=== PATIENT | male | born 1975 | race Caucasian/White ===

== ENCOUNTER 2024-02-12 13:52 | Emergency (ER) | payer OTHER, SELFPAY ==
[2024-02-12 13:59] VITALS: BP 154/106
[2024-02-12 14:19] LABS: % Basophils 0.3 % (0-2); % Immature Granulocytes 0.3 % (0-0.5); % Lymphocytes 10.1 % (20.5-51.1); % Monocytes 5.4 % (1.7-9.3); % Neutrophils 81.9 % (42.2-75.2); Absolute Eosinophils 0.3 10^3/uL (0-0.7); Absolute Lymphocytes 1.3 10^3/uL (1.2-3.4); Absolute Monocytes 0.7 10^3/uL (0.1-0.6); Absolute Neutrophils 10.8 10^3/uL (1.4-6.5); Hematocrit 43.6 % (39.0-52.0); Hemoglobin 15.8 g/dL (13.0-18.0); Mean Corp Hgb Conc. 36.2 g/dL (33.0-37.0); Mean Corpuscular Hgb 32.5 pg (27.0-31.0); Mean Corpuscular Volume 89.7 fL (80.0-94.0); Mean Platelet Volume 9.7 fL (7.4-10.4); Nucleated Red Blood Cells % 0 % (-); Platelet Count 214 10^3/uL (130-400); Red Blood Cell Count 4.86 10^6/uL (4.70-6.10); Red Cell Dist. Width 11.9 % (11.5-14.5); White Blood Cell Count 13.2 10^3/uL (4.8-10.8)
[2024-02-12 14:42] LABS: ALT (SGPT) 23 U/L (0-50); AST (SGOT) 33 U/L (17-59); Albumin 4.8 g/dl (3.5-5.0); Alkaline Phosphatase 101 U/L (38-126); Blood Urea Nitrogen 10 mg/dl (9-20); Calcium 9.7 mg/dl (8.4-10.2); Glucose 108 mg/dl (70-99); Lipase 79 U/L (23-300); Total Bilirubin 0.7 mg/dl (0.2-1.3); Total Protein 7.2 g/dl (6.3-8.2); eGFR > 60.00
[2024-02-12 14:44] LABS: Carbon Dioxide 28 mmol/L (22-30); Chloride 101 mmol/L (98-107); Potassium 4.1 mmol/L (3.5-5.1); Sodium 137 mmol/L (135-145)
[2024-02-12 14:57] LABS: Troponin I < 0.012 ng/ml
[2024-02-12] MEDS: OMNIPAQUE 50 ML PO (16:41)
[2024-02-12] MEDS: ZOFRAN 4 MG IV (16:41)
[2024-02-12] MEDS: NSS 1000 IV (16:45)
[2024-02-12 16:49] VITALS: BMI 23.8
[2024-02-12 19:00] VITALS: BP 132/86
[2024-02-12] MEDS: MAALOX 30 ML PO (19:49)
[2024-02-12 20:35] VITALS: BP 128/94
--- NOTE | 2024-02-12 20:58 | ED.GENMED ---
History of Present Illness
General
Chief Complaint: Abdominal Pain
Source: patient
Exam Limitations: none
Time Seen by Provider: 02/12/24 16:19
Nursing documentation reviewed up to this point in time: agreed with
History of Present Illness
History of Present Illness:
Patient to ED with complaint of periumbilical abdominal pain, n/v/d. Symptoms started this AM. Denies fever/chills. No prior history of same. Also reports 'abscess' to right groin. Noticed this past month. Brought self to ED for eval.
Past History
Past History
ED Past Medical History: GERD and Seizures (epilepsy)
ED Past Surgical History: Orthopedic (Back surgery)
Social History
Tobacco: Former smoker (Quit smoking 13 years ago.)
Alcohol: None
Personal:
Living: with family
Employment: Employed (Grocery store)
Family History
Family History: Cancer (Father with history of colon cancer late in life)
Review of Systems
Review of Systems
Allergies reviewed?: Yes
All Other Systems: ROS reviewed and negative except as documented in HPI and ROS
Constitutional: Reports no symptoms
EENT: Reports no symptoms
Respiratory: Reports no symptoms
Cardiac: Reports no symptoms
ABD/GI: Reports abdominal pain (periumbilical), nausea, vomiting and diarrhea
: Reports no symptoms
Musculoskeletal: Reports no symptoms
Skin: Reports no symptoms
Neurological: Reports no symptoms
Psychiatric: Reports no symptoms
Phy Exam
General Physical Exam
General Presentation: well appearing and no apparent distress
General age: appears stated age
General Skin: warm and dry
General Habitus: normal
Cardiovascular Exam
Cardiovascular Exam: regular rate/rhythm
Pulmonary Exam
Pulmonary Exam: no respiratory distress
Gastrointestinal Exam
Gastrointestinal Exam: normal bowel sounds, soft, no organomegaly, non distended, no cva tenderness and other (right small inguinal hernia, reduceable. No skin changes.)
Musculoskeletal Exam
Musculoskeletal Exam: full ROM and neuro vasc intact
Skin Exam
Skin Exam: normal color, warm/dry, no rash and other (No skin abscess)
Psychiatric Exam
Psychiatric Exam: normal mood/affect
Course
Orders/Labs/Results
Orders:
Orders
02/12/24 14:04
Electrocardiogram (*1) Urgent
Reason for Study: Abdominal Pain
EKG- Treatment ONCE
02/12/24 14:09
CMP [Comprehensive Metabolic Panel] Urgent
Complete Blood Count/With Diff Urgent
Lipase Urgent
Troponin I Urgent
02/12/24 16:33
0.9% Sodium Chloride 1000 ml [Nss] 1,000 ml IV BOLUS
Iohexol [Omnipaque] See Protocol PO NOW STA
Ondansetron Injectable [Zofran] 4 mg IV NOW STA
02/12/24 16:34
CT Abd/pel W Iv And Oral Contr Urgent
Comment:
Reason For Exam: abdominal pain, vomiting
02/12/24 19:45
Mag Hydrox/Al Hydrox/Simeth [Maalox] 30 ml PO NOW STA
Abnormal Lab Results
02/12/24
14:09
WBC 13.2 H 10^3/uL
(4.8-10.8)
MCH 32.5 H pg
(27.0-31.0)
Absolute Neuts (auto) 10.8 H 10^3/uL
(1.4-6.5)
Absolute Monos (auto) 0.7 H 10^3/uL
(0.1-0.6)
Neutrophils % 81.9 H %
(42.2-75.2)
Lymphocytes % 10.1 L %
(20.5-51.1)
Glucose 108 H mg/dl
(70-99)
02/12/24 14:09
02/12/24 14:09
Vital Signs
Initial and Last Documented VS:
Initial Vital Signs
Temp Pulse Resp BP Pulse Ox
97.8 F 105 16 154/106 96
02/12/24 13:59 02/12/24 13:59 02/12/24 13:59 02/12/24 13:59 02/12/24 13:59
Last Documented Vital Signs
Temp Pulse Resp BP Pulse Ox
97.8 F 96 18 132/86 96
02/12/24 13:59 02/12/24 20:00 02/12/24 20:00 02/12/24 19:00 02/12/24 20:30
Update Note
Update Note:
No further vomiting or diarrhea while in dept. Labs, CT reviewed with patient. Symptoms most likely due to enteritis. Will continue clear liquids, advancing diet as tolerated. Given instructions on s/s to return to ED and he is agreeable to
plan. No abscess to right groin. Small reduceable inguinal hernia noted. WIll follow up outpatient with surgery.
ED Attending Note
-
Portions of this chart may have been created with voice recognition software.� Occasional wrong word or��sound alike� substitutions may have occurred due to the inherent limitations of voice recognition software.
Discharge Plan
Departure
Patient Disposition: Home (Routine Discharge)
Date of Disposition: 02/12/24
Time of Disposition: 21:15
Patient with high blood pressure during this ER visit?: No
Condition: Good
Covid-19: Not Applicable
Discharge Problem:
Enteritis
Instructions: Clear Liquid Diet, Abdominal Pain
Prescriptions:
No Action
oxcarbazepine 300 MG tablet
900 mg PO HS
Patient Comments:
07/19/17: Prescribed 300mg in the morning and 600mg at bedtime but patient stated 'take all 3 tablets at bedtime.'
azithromycin 250 MG tablet
250 mg PO DAILY Qty: 4 0RF
oseltamivir 75 MG capsule
75 mg PO Q12H Qty: 4 0RF
guaifenesin [Mucus Relief ER] 600 MG tablet extended release 12hr
600 mg PO Q12 Qty: 14 0RF
ondansetron 4 MG tablet,disintegrating
4 mg PO TIDPRN PRN (Reason: nausea/vomiting) Qty: 10 0RF
pantoprazole [Protonix] 40 mg tablet,delayed release (DR/EC)
40 mg PO DAILY Qty: 10 0RF
Referrals:
Nany Flores MD [Family Provider] - Follow up in 2-3 days
Stand Alone Forms: Return to Work
Activity Restrictions/Additional Instructions:
Return to the emergency department immediately for any changes in/worsening of your symptoms.
Interventions
Interventions:
*Risk Screen - Suicide Last Done: 02/12/24 16:51
*General Assessment Last Done: 02/12/24 13:59
*Neglect/Abuse Screening Last Done: 02/12/24 16:51
*ED COVID-19 Vaccine History Last Done: 02/12/24 14:03
OC-Rcahjh-Igirvogjde Assessment Last Done: 02/12/24 16:51
Discharge Date and Time
Print Language: SENEGALESE
[2024-02-12 21:00] VITALS: BP 135/94
== END 2024-02-12 21:40 | disposition home or self-care (01) ==
LOC: EMR 13:52
PROVIDERS: Emergency Medicine; EMERGENCY PHYSICIAN Emergency Medicine; FAMILY PHYSICIAN Family Medicine
DX: K52.9 Noninfective gastroenteritis and colitis, unspecified (principal); K40.90 Unilateral inguinal hernia, without obstruction or gangrene, not specified as recurrent; K21.9 Gastro-esophageal reflux disease without esophagitis; R56.9 Unspecified convulsions; Z87.891 Personal history of nicotine dependence; Z88.0 Allergy status to penicillin
CPT/HCPCS: 99285; 96361; 96374; 74177; 80053; 83690; 84484; 85025; 93005; Q9967

== ENCOUNTER 2024-07-22 07:45 | Day surgery (SDC) | payer BC, SELFPAY ==
[2024-07-02 14:10] VITALS: BMI 25.0
[2024-07-22] VITALS (10 sets, daily range): BP systolic 134–146; BP diastolic 78–100; BMI 25.0
[2024-07-22] MEDS: NORMOSOL-R/PLASMALYTE-A 1000 IV (09:32)
[2024-07-22] MEDS: TYLENOL 1000 MG PO (09:32)
--- NOTE | 2024-07-22 11:41 | W.IMMPOSTOP ---
Surgical Immed Post Op Note
-
Primary Surgeon: Penyn
Assisting: Jennifer CAMARGO
Pre-op Diagnosis: Right inguinal hernia
Post-op Diagnosis: Same
Procedure Performed: Robot assisted laparoscopic repair of right inguinal hernia
Anesthesia Type: GETA
Specimen / Cultures: None
Estimated Blood Loss: 5cc
Complications: None immediate
Operative Findings: Indirect defect, large deep sac totally reduced; XL MID 3D Max
--- NOTE | 2024-07-22 11:42 | OR.RPT ---
Operative Report
Operative Report
Primary Surgeon: Penny
Assisting: Jennifer CAMARGO
Pre-op Diagnosis: Right inguinal hernia
Post-op Diagnosis: Same
Procedure Performed: Robot assisted laparoscopic repair of right inguinal hernia
Anesthesia Type: GETA
Specimen / Cultures: None
Estimated Blood Loss: 5cc
Complications: None immediate
Operative Findings: Indirect defect, large deep sac totally reduced; XL MID 3D Max
Date of surgery: 07/22/24
Indications:� This 49M developed a symptomatic right inguinal hernia. Robot assisted laparoscopic repair was planned.
Description of procedure:� The patient was taken to the operating room and positioned into supine position. The patient�s abdomen was prepped and draped in standard sterile fashion. A time-out was completed verifying correct patient, procedure,
site, positioning, and implants and special equipment prior to beginning this procedure.
The right groin hernia was manually reduced. A stab incision was made in the left upper quadrant, a Veress needle was inserted and proper position was confirmed by aspiration and saline drop test. Following this, pneumoperitoneum was created with
insufflation of carbon dioxide to 12 mmHg. Then a 8mm robotic trocar was inserted above and to the left of the umbilicus. A laparoscope was inserted and the area of initial trocar entry and Veress needle placement were both inspected and no injuries
were found. Two 8mm trocars were then placed lateral to the rectus sheath under direct visualization.
Both inguinal regions were inspected and the median umbilical ligament, medial umbilical ligament, and lateral umbilical fold were identified. Attention was turned to the right groin. The peritoneum was incised transversely above the defect and a
flap was developed in the caudad direction. Colten�s ligament was identified ultimately dissected to its junction with the iliac vein and the space of Retzius was developed bluntly.�The dissection was continued inferiorly to the iliopubic tract,
with care taken to avoid injury to the femoral branch of the genitofemoral nerve and the lateral femoral cutaneous nerve. The cord structures were parietalized.
The direct space was inspected and no hernia defect was identified. The femoral space was inspected no defect was identified.� The indirect space was inspected and a hernia was identified and reduced by gentle traction. The canal was inspected and
no cord lipoma was identified.
Extra large right MID 3D max mesh was passed through a trocar. The mesh was placed into the preperitoneal space and moved into position to lay flat and completely cover the direct, indirect, and femoral spaces with overlap beyond the midline. The
mesh was secured into place using 2-0 vicryl suture to Colten�s ligament medially and laterally. Care was taken to avoid the inferolateral triangles containing the iliac vessels and genital nerves. The peritoneal flap was closed over the mesh and
secured with 2-0 monocryl stratafix suture in similar positions of safety. A 14g angiocath was used to decompress the preperitoneal space revealing good seal and all mesh in good position without folding or curling.
After ensuring adequate hemostasis, the trocars were removed and the pneumoperitoneum allowed to escape. The trocar incisions were closed at the skin level using 4-0 monocryl and topical skin adhesive. All counts were correct and the patient
tolerated the procedure well and was taken to the postanesthesia care unit in stable condition.
The assistance of Jennifer CAMARGO was required due to the complexity of the procedure. During the procedure she assisted with retraction, and closure of the wound.
== END 2024-07-22 14:12 | disposition home or self-care (01) ==
LOC: SDS 07:45
PROVIDERS: ATTENDING PHYSICIAN Surgery; FAMILY PHYSICIAN Family Medicine
DX: K40.90 Unilateral inguinal hernia, without obstruction or gangrene, not specified as recurrent (principal)
CPT/HCPCS: 49650; 36415; 93005; C1781

== ENCOUNTER → 2025-03-30 21:30 | Emergency (ER) | payer BC, SELFPAY ==
[2025-03-30 21:33] VITALS: BP 163/120
--- NOTE | 2025-03-30 21:53 | ED.GENMED ---
History of Present Illness
General
Chief Complaint: Chest Pain
Time Seen by Provider: 03/30/25 21:45
History of Present Illness
History of Present Illness:
49-year-old male presents to the emergency department for eval ration of lightheadedness/dizziness associated with nausea and left-sided chest pain for the past 2 to 3 days. Lightheadedness and nausea began initially in conjunction with cold and
flu type symptoms, he states the URI symptoms have since resolved however the chest pain has persisted. Pain is nonpleuritic and nonradiating. Denies any obvious fevers or chills. No shortness of breath, nausea, or vomiting at this time. Has no
history of cardiovascular disease. Former smoker
Past History
Past History
ED Past Medical History: GERD and Seizures (epilepsy)
ED Past Surgical History: Orthopedic (Back surgery)
Social History
Tobacco: Former smoker (Quit smoking 13 years ago.)
Alcohol: None
Personal:
Living: with family
Employment: Employed (Grocery store)
Family History
Family History: Cancer (Father with history of colon cancer late in life)
Review of Systems
Review of Systems
Allergies reviewed?: Yes
All Other Systems: ROS reviewed and negative except as documented in HPI and ROS
Phy Exam
Physical Exam
Physical Exam:
GEN: Well appearing, NAD, WDWN
HEENT: Oral mucosa moist, no scleral icterus, oropharynx clear with no erythema
Cardiac: Regular rate and rhythm, no murmurs
Lung: No respiratory distress, no tachypnea, lungs clear to auscultation bilaterally
MSK: No gross deformity or injuries
Skin: Good color, no pallor or jaundice, no rashes
Neuro: AO x3, moves all extremities freely
Psych: Calm, cooperative
Scores
Heart Score for Chest Pain Patients
STEMI patient?: No
History: Slightly or Non-Suspicious
ECG: Normal
Age: >45 - <65 years
Risk Factors: 1 or 2 Risk Factors
Troponin: </= Normal Limit
Heart Score for Chest Pain Patients: 2
Heart Score Risk: 2.5% MACE over next 6 weeks
Course
Orders/Labs/Results
Orders:
Orders
03/30/25 21:52
Electrocardiogram (*1) Urgent
Reason for Study: Chest Pain
EKG- Treatment ONCE
CR Chest - 2 Views Urgent
Comment:
Reason For Exam: chest pain
03/30/25 22:12
COVID-19 Antigen Urgent
Source: Nasal Swab
Complete Blood Count/With Diff Urgent
Comprehensive Metabolic Panel Urgent
Troponin I Urgent
Influenza A+B Rapid Molecular Urgent
CINTHIA Source: Nasal Swab
Specimen Description:
Abnormal Lab Results
03/30/25
22:12
RBC 4.37 L 10^6/uL
(4.70-6.10)
Hct 38.8 L %
(39.0-52.0)
MCH 31.4 H pg
(27.0-31.0)
Creatinine 0.6 L mg/dL
(0.7-1.3)
Glucose 102 H mg/dl
(70-99)
03/30/25 22:12
03/30/25 22:12
Vital Signs
Initial and Last Documented VS:
Initial Vital Signs
Temp Pulse Resp BP Pulse Ox
98.5 F 77 15 163/120 98
03/30/25 21:33 03/30/25 21:33 03/30/25 21:33 03/30/25 21:33 03/30/25 21:33
Last Documented Vital Signs
Temp Pulse Resp BP Pulse Ox
98.5 F 77 15 163/120 98
03/30/25 21:33 03/30/25 21:33 03/30/25 21:33 03/30/25 21:33 03/30/25 21:53
MDM/Problems Addressed
MDM/Problems Addressed:
49-year-old male presenting with left-sided chest discomfort associated with URI symptoms and lightheadedness. Labs are reassuring, troponin is negative and patient has symptoms for greater than 48 hours thus 1 troponin is reassuring. He does not
have a strong clinical concern for ACS or PE at this time. Meets PE rule out criteria. May be musculoskeletal versus inflammatory chest wall pain, discussed supportive care
Comment
Comment:
EKG independently interpreted by me shows normal sinus rhythm with no concerning ST changes. Chest x-ray independently interpreted by me is clear with no acute cardiopulmonary disease
*Pulse Oximetry
SaO2: 98
Oxygen Mode of Delivery: Room air
Patient hypoxic: no
*Critical Care Note
Total Time (30-74mins, 75-104mins- exclusive of procedures): Not Applicable
ED Attending Note
-
Portions of this chart may have been created with voice recognition software.� Occasional wrong word or��sound alike� substitutions may have occurred due to the inherent limitations of voice recognition software.
Discharge Plan
Departure
Patient Disposition: Home (Routine Discharge)
Date of Disposition: 03/30/25
Time of Disposition: 23:04
Patient with high blood pressure during this ER visit?: No
Discharge Problem:
Atypical chest pain
Instructions: Chest Pain That Is Not Caused by the Heart (DC)
Prescriptions:
No Action
oxcarbazepine 300 MG tablet
300 mg PO DAILY
Allergy Medicine
1 tab PO DAILY
Patient Comments:
Patient didn't know name of allergy medicine
oxcarbazepine 300 mg Tablet
600 mg PO QPM
fluticasone propionate 50 mcg/actuation Rhame,Suspension
1 spray INTRANASAL PRN PRN (Reason: allergies)
oxycodone 5 mg tablet
5 - 10 mg PO Q4HPRN PRN (Reason: moderate to severe pain) Qty: 15 0RF
Referrals:
Nany Flores MD [Family Provider, Family Practice]
Activity Restrictions/Additional Instructions:
Follow-up with your primary care physician if symptoms do not improve in the next 2 to 3 days
Interventions
Interventions:
*General Assessment Last Done: 03/30/25 21:33
*Neglect/Abuse Screening Last Done: 03/30/25 21:33
*ED COVID-19 Vaccine History Last Done: 03/30/25 21:33
ED- Cardiac Assessment Last Done: 03/30/25 22:21
Discharge Date and Time
Print Language: PORTUGUESE
[2025-03-30 22:04] VITALS: BMI 25.0
[2025-03-30 22:22] LABS: Hematocrit 38.8 % (39.0-52.0); Hemoglobin 13.7 g/dL (13.0-18.0); Mean Corp Hgb Conc. 35.3 g/dL (33.0-37.0); Mean Corpuscular Volume 88.8 fL (80.0-94.0); Nucleated Red Blood Cells % 0 % (-); Platelet Count 183 10^3/uL (130-400); Red Cell Dist. Width 11.9 % (11.5-14.5)
[2025-03-30 22:42] LABS: COVID-19 Antigen Negative (Negative)
[2025-03-30 22:45] LABS: ALT (SGPT) 19 U/L (0-50); AST (SGOT) 22 U/L (17-59); Albumin 4.2 g/dl (3.5-5.0); Alkaline Phosphatase 87 U/L (38-126); Blood Urea Nitrogen 9 mg/dl (9-20); Calcium 9.0 mg/dl (8.4-10.2); Carbon Dioxide 28 mmol/L (22-30); Chloride 105 mmol/L (98-107); Estimated Creatinine Clearance > 125 ml/min; Glucose 102 mg/dl (70-99); Potassium 3.9 mmol/L (3.5-5.1); Sodium 139 mmol/L (135-145); Total Protein 6.8 g/dl (6.3-8.2); eGFR > 60.00
[2025-03-30 22:50] LABS: Troponin I < 0.012 ng/ml
== END | disposition home or self-care (01) ==
LOC: EMR 21:30
PROVIDERS: Physician Assistant; EMERGENCY PHYSICIAN Emergency Medicine; FAMILY PHYSICIAN Family Medicine
DX: R07.89 Other chest pain (principal); R42 Dizziness and giddiness; R11.0 Nausea; Z11.52 Encounter for screening for COVID-19; G40.909 Epilepsy, unspecified, not intractable, without status epilepticus; K21.9 Gastro-esophageal reflux disease without esophagitis; Z87.891 Personal history of nicotine dependence; Z88.0 Allergy status to penicillin; Z91.048 Other nonmedicinal substance allergy status
CPT/HCPCS: 99283; 71046; 80053; 84484; 85025; 87502; 87811; 93005